=== PATIENT | female | born 1985 | race Two or more races ===

== ENCOUNTER 2017-10-31 22:42 | Emergency (ER) | payer OTHER ==
--- NOTE | 2017-10-31 22:52 | NUR ---
Patient wanted to be seen by an APPLICATION SYSTEMS ADMINISTRATOR physician. Patient provided explanation that we can have her evaluated by the ER MD and we have ultrasound capabilities here. Patient states she wants an APPLICATION SYSTEMS ADMINISTRATOR and will go to [facility] instead.
== END 2017-10-31 22:55 | disposition left against medical advice (07) ==
LOC: ER 22:45
DX: Z53.21 Procedure and treatment not carried out due to patient leaving prior to being seen by health care provider (principal)